=== PATIENT | female | born 1975 | race African-American/Black ===

== ENCOUNTER 2021-01-11 11:52 | Inpatient (IN) | payer MEDICAID ==
[~2021-01-11] VITALS: Ht 162.6 cm; Wt 150.1 kg
[~2021-01-11 11:52] MED LIST: ALBU6.7H9 INH; ATOR20TA PO; CLON0.2T12 PO; FURO-151 MT; HYDR100T26 PO; LEVO50TA8 PO; POTA20TA82 MT; VERA240C3 MT
[2021-01-11] MEDS ORDERED: IBUPROFEN 600MG TABLET PO ONE (12:45)
[2021-01-11 12:57] LABS: BASOPHILS % 0.9 % (0.0-2.0); EOSINOPHILS % 3.9 % (0.0-5.0); HEMATOCRIT. 38.8 % (36.0-48.0); HEMOGLOBIN. 12.3 g/dL (12.0-16.0); LYMPHOCYTES % 15.2 % (20.0-50.0); MEAN CORPUSCULAR HEMOGLOBIN 26.4 pg (28.0-32.0); MEAN CORPUSCULAR VOLUME 83.2 fL (81.0-99.0); MEAN PLATELET VOLUME 10.1 fl (7.4-10.4); MONOCYTES % 5.6 % (2.0-8.0); NEUTROPHILS % 74.4 % (40.0-76.0); PLATELET 248 x1000/uL (130-400); RED BLOOD CELL COUNT 4.66 mill/uL (4.2-5.4); RED CELL DISTRIBUTION WIDTH 16.5 % (11.6-14.6)
[2021-01-11 13:04] LABS: CHLORIDE 102 mEq/L (98-107)
[2021-01-11] MEDS ORDERED: HYDRALAZINE 20MG/ML VIAL IV ONE (15:15)
[2021-01-11] MEDS ORDERED: FUROSEMIDE 20MG/2ML VIAL IVP ONE (16:00)
[2021-01-11] MEDS ORDERED: MORPHINE SULFATE 2 MG/ML CPJ (NOT FOR IM USE) IV NR (20:46)
[2021-01-11] MEDS: CLONIDINE 0.2MG TABLET PO PRN (22:14)
[2021-01-12] VITALS: BP 175/93
[2021-01-12] MEDS ORDERED: *PATIENT'S OWN MEDICATION STORAGE XX SCH (02:15)
[2021-01-12] MEDS ORDERED: NALOXONE HCL 0.4MG/ML VIAL IV PRN (02:15)
[2021-01-12 04:00] VITALS: BP 144/68
[2021-01-12] MEDS: SODIUM CHLORIDE 0.9% 1,000 ML IV SCH ×2 (05:02→17:23)
[2021-01-12 07:41] LABS: BASOPHILS % 0.6 % (0.0-2.0); EOSINOPHILS % 4.7 % (0.0-5.0); HEMATOCRIT. 33.9 % (36.0-48.0); HEMOGLOBIN. 10.9 g/dL (12.0-16.0); LYMPHOCYTES % 27.1 % (20.0-50.0); MEAN CORPUSCULAR HEMOGLOBIN 26.7 pg (28.0-32.0); MONOCYTES % 6.5 % (2.0-8.0); NEUTROPHILS % 61.1 % (40.0-76.0); RED BLOOD CELL COUNT 4.08 mill/uL (4.2-5.4); RED CELL DISTRIBUTION WIDTH 16.6 % (11.6-14.6)
[2021-01-12 08:00] VITALS: BP 166/99
[2021-01-12] MEDS: METOPROLOL TARTRATE 50MG TABLET PO SCH ×2 (08:34→21:00)
[2021-01-12] MEDS: AMLODIPINE 10MG TABLET PO SCH (08:34)
[2021-01-12] MEDS: IPRATROPIUM/ALBUTEROL 0.5-3(2.5)MG/3ML NEB HHN SCH ×4 (09:04→21:18)
[2021-01-12 09:18] LABS: PLATELET 147 x1000/uL (130-400)
[2021-01-12] MEDS ORDERED: INFLUENZA VACCINE 05/PF 0.5 ML SYRINGE IM ONE (10:00)
[2021-01-12 12:00] VITALS: BP 186/103
[2021-01-12] MEDS: THIAMINE HCL 100MG TABLET PO SCH (12:43)
[2021-01-12] MEDS: CLONIDINE 0.2MG TABLET PO PRN ×2 (12:44→17:59)
[2021-01-12] MEDS: HYDROCODONE/ACETAMINOPHEN 10/325MG TABLET PO PRN ×2 (12:44→18:00)
[2021-01-12 16:00] VITALS: BP 187/99
[2021-01-12 20:00] VITALS: BP 141/87
[2021-01-12] MEDS: HYDRALAZINE HCL 50MG TABLET PO SCH (21:01)
[2021-01-13] VITALS: BP 107/68
[2021-01-13] MEDS: IPRATROPIUM/ALBUTEROL 0.5-3(2.5)MG/3ML NEB HHN SCH ×6 (00:24→21:32)
[2021-01-13] MEDS: HYDROCODONE/ACETAMINOPHEN 10/325MG TABLET PO PRN ×3 (00:58→18:08)
[2021-01-13 04:00] VITALS: BP 109/65
[2021-01-13] MEDS: SODIUM CHLORIDE 0.9% 1,000 ML IV SCH ×2 (05:33→18:09)
[2021-01-13 05:47] LABS: BASOPHILS % 0.7 % (0.0-2.0); EOSINOPHILS % 5.3 % (0.0-5.0); HEMATOCRIT. 35.8 % (36.0-48.0); LYMPHOCYTES % 27.4 % (20.0-50.0); MEAN CORPUSCULAR HEMOGLOBIN 26.3 pg (28.0-32.0); MEAN CORPUSCULAR VOLUME 85.3 fL (81.0-99.0); MEAN PLATELET VOLUME 10.4 fl (7.4-10.4); NEUTROPHILS % 59.6 % (40.0-76.0); PLATELET 222 x1000/uL (130-400); RED BLOOD CELL COUNT 4.19 mill/uL (4.2-5.4); RED CELL DISTRIBUTION WIDTH 16.6 % (11.6-14.6)
[2021-01-13 08:00] VITALS: BP 133/76
[2021-01-13] MEDS: THIAMINE HCL 100MG TABLET PO SCH (09:05)
[2021-01-13] MEDS: METOPROLOL TARTRATE 50MG TABLET PO SCH ×2 (09:05→21:11)
[2021-01-13] MEDS: HYDRALAZINE HCL 50MG TABLET PO SCH ×2 (09:06→21:11)
[2021-01-13] MEDS: AMLODIPINE 10MG TABLET PO SCH (09:06)
[2021-01-13 10:18] LABS: CREATINE KINASE 100 IU/L (26-192)
[2021-01-13 12:00] VITALS: BP 124/78
[2021-01-13 16:00] VITALS: BP 143/80
[2021-01-13 16:52] LABS: CLARITY URINE CLOUDY (CLEAR); COLOR URINE YELLOW (YELLOW); KETONES URINE NEGATIVE (NEGATIVE); LEUKOCYTE ESTERASE URINE NEGATIVE (NEGATIVE); NITRITE URINE NEGATIVE (NEGATIVE); OCCULT BLOOD URINE NEGATIVE (NEGATIVE); PROTEIN URINE 2+ (NEGATIVE); SPECIFIC GRAVITY URINE 1.014 (1.005-1.030); UROBILINOGEN URINE 0.2 E.U./dL (0.2-1.0)
[2021-01-13] MEDS ORDERED: MORPHINE SULFATE 2 MG/ML CPJ (NOT FOR IM USE) IV NR (18:59)
[2021-01-13 20:00] VITALS: BP 158/94
[2021-01-13] MEDS ORDERED: FAMOTIDINE 20MG TABLET PO SCH (21:00)
[2021-01-14] VITALS: BP 137/82
[2021-01-14] MEDS: IPRATROPIUM/ALBUTEROL 0.5-3(2.5)MG/3ML NEB HHN SCH ×5 (01:19→16:09)
[2021-01-14 04:02] VITALS: BP 128/73
[2021-01-14 06:49] LABS: BASOPHILS % 0.5 % (0.0-2.0); EOSINOPHILS % 5.7 % (0.0-5.0); HEMATOCRIT. 34.3 % (36.0-48.0); HEMOGLOBIN. 10.9 g/dL (12.0-16.0); LYMPHOCYTES % 18.4 % (20.0-50.0); MEAN CORPUSCULAR HEMOGLOBIN 26.6 pg (28.0-32.0); MEAN CORPUSCULAR VOLUME 83.8 fL (81.0-99.0); MEAN PLATELET VOLUME 10.7 fl (7.4-10.4); MONOCYTES % 4.6 % (2.0-8.0); NEUTROPHILS % 70.8 % (40.0-76.0); PLATELET 241 x1000/uL (130-400); RED BLOOD CELL COUNT 4.09 mill/uL (4.2-5.4); RED CELL DISTRIBUTION WIDTH 16.5 % (11.6-14.6)
[2021-01-14 06:58] LABS: PHOSPHORUS 4.9 mg/dL (2.5-4.9)
[2021-01-14 08:00] VITALS: BP 134/73
[2021-01-14] MEDS: SODIUM CHLORIDE 0.9% 1,000 ML IV SCH (08:20)
[2021-01-14] MEDS: METOPROLOL TARTRATE 50MG TABLET PO SCH (09:28)
[2021-01-14] MEDS: HYDRALAZINE HCL 50MG TABLET PO SCH (09:28)
[2021-01-14] MEDS: AMLODIPINE 10MG TABLET PO SCH (09:28)
[2021-01-14 12:00] VITALS: BP 148/86
[2021-01-14] MEDS ORDERED: LORATADINE 10MG TABLET PO SCH (14:30)
[2021-01-14] MEDS: THIAMINE HCL 100MG TABLET PO SCH (14:48)
[2021-01-14 16:00] VITALS: BP 157/89
[2021-01-14] MEDS ORDERED: HYDR100T26 MT (16:12)
[2021-01-14] MEDS ORDERED: AMLO10TA80 PO (16:12)
[2021-01-14] MEDS ORDERED: CLAR10 PO (16:13)
[2021-01-14] MEDS ORDERED: OMEP20CA14 MT (16:13)
[2021-01-14 16:29] VITALS: BP 157/89
[2021-01-15 13:07] LABS: ANTI-NUCLEAR ANTIBODIES DIRECT Negative (Negative)
== END 2021-01-14 17:55 | disposition home or self-care (01) ==
LOC: ER 11:52 → 6WST 14:55 → ENRESERV 19:58
PROVIDERS: ADMIT Internal Medicine; ATTEND Internal Medicine
DX: K80.20 Calculus of gallbladder without cholecystitis without obstruction (principal); N17.9 Acute kidney failure, unspecified; E44.1 Mild protein-calorie malnutrition; I13.0 Hypertensive heart and chronic kidney disease with heart failure and stage 1 through stage 4 chronic kidney disease, or unspecified chronic kidney disease; I50.9 Heart failure, unspecified; K83.8 Other specified diseases of biliary tract; Z68.43 Body mass index [BMI] 50.0-59.9, adult; J45.909 Unspecified asthma, uncomplicated; F10.10 Alcohol abuse, uncomplicated; Y90.9 Presence of alcohol in blood, level not specified; R74.01 Elevation of levels of liver transaminase levels; E66.9 Obesity, unspecified; N18.9 Chronic kidney disease, unspecified; Z88.2 Allergy status to sulfonamides; Z79.890 Hormone replacement therapy; Z79.899 Other long term (current) drug therapy
CPT/HCPCS: 36415; 71045; 76700; 76770; 78227; 80048; 80053; 80076; 81003; 82550; 83735; 83880; 84100; 84484; 85025; 86038; 86160; 90686; 93005; 93306; 94640; 99285; A6261; A9537; C1893; J0360; J1940; J2270; J7030

== ENCOUNTER 2023-09-06 09:15 | Inpatient (IN) | payer MEDICAID ==
[2023-09-06] VITALS (9 sets, daily range): BP systolic 146–180; BP diastolic 62–96; PULSE 64–104; RESP 13–20; TEMP 97.7–98.4; O2SAT 99
[~2023-09-06] VITALS: Ht 167.6 cm; Wt 140.6 kg
[~2023-09-06 09:15] MED LIST changes: +ALBU6.7H3 INH; -ALBU6.7H9 INH; -ATOR20TA PO; +CITR473S PO; +CLOB15CR4 TOP; -CLON0.2T12 PO; -FURO-151 MT; +FURO40TA5 MT; -HYDR100T26 PO; -POTA20TA82 MT; -VERA240C3 MT
[2023-09-06 09:47] LABS: HEMATOCRIT. 29.6 % (36.0-48.0); HEMOGLOBIN. 9.1 g/dL (12.0-16.0); LYMPHOCYTES % 9.2 % (20.0-50.0); MEAN CORPUSCULAR HGB CONC 30.8 g/dL (31.0-37.0); MEAN CORPUSCULAR VOLUME 81.1 fL (81.0-99.0); MEAN PLATELET VOLUME 9.1 fl (7.4-10.4); MONOCYTES % 7.3 % (2.0-8.0); NEUTROPHILS % 77.5 % (40.0-76.0); PLATELET 262 x1000/uL (130-400); RED BLOOD CELL COUNT 3.64 mill/uL (4.2-5.4); RED CELL DISTRIBUTION WIDTH 21.2 % (11.6-14.6); WHITE BLOOD COUNT 6.5 x1000/uL (4.5-11.0)
[2023-09-06 09:48] LABS: CHLORIDE 114 mEq/L (98-107); SODIUM 137 mEq/L (136-145)
[2023-09-06 09:49] LABS: CALCIUM 8.6 mg/dL (8.7-10.4); CARBON DIOXIDE 13 mEq/L (21-32)
[2023-09-06 09:54] LABS: GLUCOSE 91 mg/dL (70-105); UREA NITROGEN BLOOD 80 mg/dL (9-23)
[2023-09-06 09:55] LABS: TROPONIN I HIGH SENSITIVITY 27 ng/L (3.0-34)
[2023-09-06 09:57] LABS: HCG SCREEN NEGATIVE
[2023-09-06 10:21] LABS: POTASSIUM 7.4 mEq/L (3.5-5.1)
[2023-09-06] MEDS ORDERED: FUROSEMIDE 100MG/10ML VIAL IV STA (10:21)
[2023-09-06 10:22] LABS: CREATININE 7.2 mg/dL (0.6-1.0); ETHANOL BLOOD < 10 mg/dL (<10)
[2023-09-06] MEDS: ALBUTEROL (0.083%) 2.5MG/3ML NEB HHN ONE (10:30)
[2023-09-06] MEDS: SODIUM BICARBONATE 8.4% 1 MEQ/ML 50ML SYR IV ONE (10:38)
[2023-09-06] MEDS: FUROSEMIDE 40MG/4ML VIAL IV NR (10:38)
[2023-09-06] MEDS: CALCIUM CHLORIDE 1GM/10ML SYR IV ONE (10:38)
[2023-09-06] MEDS: DEXTROSE 50% WATER 50ML SYRINGE IV ONE (11:17)
[2023-09-06] MEDS: INSULIN REGULAR (HUMULIN R) 300UNITS/3ML VIAL IV ONE (11:17)
[2023-09-06 11:18] LABS: PROTHROMBIN TIME 10.9 sec (9.6-11.0)
[2023-09-06] MEDS: LIDOCAINE HCL 1% 10 MG/ML 10ML VIAL ONE (11:18)
[2023-09-06] MEDS: LORAZEPAM 2MG/ML INJ IV ONE (11:44)
[2023-09-06 16:10] LABS: HEPATITIS B SURFACE ANTIGEN NEGATIVE (Negative)
[2023-09-06 16:31] LABS: HEPATITIS A AB IGM NEGATIVE (Negative)
[2023-09-06 16:32] LABS: HEPATITIS B CORE AB IGM NEGATIVE (Negative); HEPATITIS C AB NON REACTIVE (Neg) (Negative)
[2023-09-07] VITALS (11 sets, daily range): BP systolic 97–150; BP diastolic 54–84; PULSE 76–99; RESP 16–20; TEMP 97.3–99
[2023-09-07 06:09] LABS: HEMATOCRIT 25.6 % (36.0-48.0); HEMOGLOBIN 8.4 g/dL (12.0-16.0); MEAN CORPUSCULAR HEMOGLOBIN 25.4 pg (28.0-32.0); MEAN CORPUSCULAR HGB CONC 32.9 g/dL (31.0-37.0); MEAN CORPUSCULAR VOLUME 77.3 fL (81.0-99.0); PLATELET 220 x1000/uL (130-400); RED BLOOD CELL COUNT 3.31 mill/uL (4.2-5.4); RED CELL DISTRIBUTION WIDTH 20.7 % (11.6-14.6); WHITE BLOOD COUNT 6.1 x1000/uL (4.5-11.0)
[2023-09-07 06:16] LABS: CALCIUM 8.4 mg/dL (8.7-10.4)
[2023-09-07 06:23] LABS: CREATININE 6.9 mg/dL (0.6-1.0); PHOSPHORUS 5.5 mg/dL (2.5-4.9)
[2023-09-07] MEDS: DEXTROSE 50% WATER 50ML SYRINGE IV NR (07:47)
[2023-09-07] MEDS: INSULIN REGULAR (HUMULIN R) 300UNITS/3ML VIAL IV NR (07:47)
[2023-09-07] MEDS: SODIUM POLYSTYRENE SULFONATE 15 G/60 ML BOT PO NR (08:00)
[2023-09-07] MEDS: AMLODIPINE 10MG TABLET PO SCH (09:00)
[2023-09-07] MEDS: ACETAMINOPHEN 325MG TABLET PO PRN (10:39)
[2023-09-07] MEDS: SEVELAMER CARBONATE 800 MG TABLET PO SCH (10:39)
[2023-09-07 11:04] LABS: CREATINE KINASE 497 IU/L (34-145)
[2023-09-07 13:08] LABS: POTASSIUM 4.8 mEq/L (3.5-5.1)
[2023-09-07 13:09] LABS: CALCIUM 8.4 mg/dL (8.7-10.4)
[2023-09-07 13:15] LABS: CREATININE 5.1 mg/dL (0.6-1.0)
[2023-09-07] MEDS: CALCIUM GLUCONATE 1GM PREMIX 100 ML IV NR (14:10)
[2023-09-08] VITALS: BP 107/57; PULSE 79; RESP 18; TEMP 97.5
[2023-09-08 04:00] VITALS: BP 101/60; PULSE 87; RESP 20; TEMP 97.8
[2023-09-08 05:55] LABS: HEMATOCRIT. 25.7 % (36.0-48.0); HEMOGLOBIN. 8.2 g/dL (12.0-16.0); MEAN CORPUSCULAR HEMOGLOBIN 24.8 pg (28.0-32.0); MEAN CORPUSCULAR HGB CONC 31.8 g/dL (31.0-37.0); MEAN CORPUSCULAR VOLUME 77.9 fL (81.0-99.0); MEAN PLATELET VOLUME 9.5 fl (7.4-10.4); PLATELET 203 x1000/uL (130-400); RED CELL DISTRIBUTION WIDTH 20.6 % (11.6-14.6); WHITE BLOOD COUNT 6.9 x1000/uL (4.5-11.0)
[2023-09-08 06:03] LABS: POTASSIUM 4.9 mEq/L (3.5-5.1)
[2023-09-08 06:04] LABS: CALCIUM 7.7 mg/dL (8.7-10.4)
[2023-09-08 06:30] LABS: CREATININE 7.6 mg/dL (0.6-1.0)
[2023-09-08 07:08] LABS: DIFFERENTIAL COMMENT 1
[2023-09-08 08:00] VITALS: BP 116/67; PULSE 72; RESP 20; TEMP 98.3
[2023-09-08 09:06] LABS: ANTI-NUCLEAR ANTIBODIES DIRECT Negative (Negative); COMPLEMENT C3 136 mg/dL (82-167); COMPLEMENT C4 57 mg/dL (12-38)
[2023-09-08 12:00] VITALS: BP 105/63; PULSE 73; RESP 22; TEMP 98
[2023-09-08 13:45] LABS: CLARITY URINE TURBID (CLEAR); COLOR URINE YELLOW (YELLOW); GLUCOSE URINE NEGATIVE (NEGATIVE); KETONES URINE TRACE (NEGATIVE); LEUKOCYTE ESTERASE URINE 3+ (NEGATIVE); NITRITE URINE NEGATIVE (NEGATIVE); OCCULT BLOOD URINE 1+ (NEGATIVE); PROTEIN URINE 2+ (NEGATIVE); SPECIFIC GRAVITY URINE 1.016 (1.005-1.030); UROBILINOGEN URINE 0.2 E.U./dL (0.2-1.0)
[2023-09-08 14:27] LABS: BACTERIA URINE 3+; SQUAMOUS EPITHELIAL CELL URINE 2+ /lpf (RARE/1+); WBC URINE TNTC /hpf (0-2)
[2023-09-08 16:00] VITALS: BP 118/73; PULSE 74; RESP 20; TEMP 98.2
[2023-09-08 16:43] LABS: ANISOCYTOSIS 1+; HYPOCHROMASIA 1+; MICROCYTOSIS 1+; NUCLEATED RED BLOOD CELLS 1 /100 WBC; PLATELET ESTIMATE NORMAL
[2023-09-08 20:00] VITALS: BP 120/75; PULSE 77; RESP 18; TEMP 99.1
[2023-09-08] MEDS: EPOETIN ALFA 4000UNITS/ML VIAL SUBCUT NR (21:47)
[2023-09-09] VITALS (19 sets, daily range): BP systolic 102–174; BP diastolic 48–105; PULSE 75–99; RESP 14–20; TEMP 96.7–98.9
[2023-09-09 06:33] LABS: CALCIUM 7.6 mg/dL (8.7-10.4)
[2023-09-09] MEDS ORDERED: LIDOCAINE HCL/EPINEPHRINE 1%-EPI 1:100,000 20 ML VIAL ONE (07:27)
[2023-09-09] MEDS ORDERED: LIDOCAINE HCL 1% 10 MG/ML 10ML VIAL ONE (07:27)
[2023-09-09 07:35] LABS: CREATININE 8.5 mg/dL (0.6-1.0)
[2023-09-09] MEDS: CEFAZOLIN 1000MG PREMIX 50 ML IV NR (07:45)
[2023-09-09] MEDS ORDERED: FENTANYL CITRATE/PF 50MCG/ML 2ML VIAL ONE (07:54)
[2023-09-09] MEDS: FENTANYL CITRATE/PF 50MCG/ML 2ML VIAL IV ONE (07:55)
[2023-09-09] MEDS ORDERED: LEVO250T74 MT (14:28)
[2023-09-09] MEDS: CEFTRIAXONE 1GM/50ML 50 ML IV SCH (18:03)
[2023-09-10] VITALS: BP 127/74; PULSE 82; RESP 20; TEMP 98.8
[2023-09-10 04:00] VITALS: BP 111/69; PULSE 79; RESP 16; TEMP 99.3
[2023-09-10 08:00] VITALS: BP 115/67; PULSE 72; RESP 18; TEMP 98.5
[2023-09-10 11:43] VITALS: BP 115/67; PULSE 72; TEMP 98.4; O2SAT 98
[2023-09-13] MEDS ORDERED: CARV3.1242 MT (10:19)
[2023-09-14] MEDS ORDERED: LEVO50TA8 PO (12:34)
== END 2023-09-10 12:30 | disposition home or self-care (01) | DRG 52 ==
LOC: ER 09:15 → EDBEDREQ 11:34 → EDBEDREQTM 11:34 → 5WST 18:04 → 8WST 21:35
PROVIDERS: ADMIT Internal Medicine; ATTEND Internal Medicine
PROC: 5A1D70Z Performance of Urinary Filtration, Intermittent, Less than 6 Hours Per Day (ICD-10-PCS; principal; 2023-09-06)
PROC: 02HV33Z Insertion of Infusion Device into Superior Vena Cava, Percutaneous Approach (ICD-10-PCS; 2023-09-06)
PROC: B548ZZA Ultrasonography of Superior Vena Cava, Guidance (ICD-10-PCS; 2023-09-06)
PROC: 5A1D70Z Performance of Urinary Filtration, Intermittent, Less than 6 Hours Per Day (ICD-10-PCS; 2023-09-07)
PROC: 5A1D70Z Performance of Urinary Filtration, Intermittent, Less than 6 Hours Per Day (ICD-10-PCS; 2023-09-09)
PROC: 0JH63XZ Insertion of Tunneled Vascular Access Device into Chest Subcutaneous Tissue and Fascia, Percutaneous Approach (ICD-10-PCS; 2023-09-09)
PROC: 02HV33Z Insertion of Infusion Device into Superior Vena Cava, Percutaneous Approach (ICD-10-PCS; 2023-09-09)
PROC: B548ZZA Ultrasonography of Superior Vena Cava, Guidance (ICD-10-PCS; 2023-09-09)
PROC: B5181ZA Fluoroscopy of Superior Vena Cava using Low Osmolar Contrast, Guidance (ICD-10-PCS; 2023-09-09)
DX: G93.41 Metabolic encephalopathy (principal); I13.2 Hypertensive heart and chronic kidney disease with heart failure and with stage 5 chronic kidney disease, or end stage renal disease; N17.9 Acute kidney failure, unspecified; E87.20 Acidosis, unspecified; E11.22 Type 2 diabetes mellitus with diabetic chronic kidney disease; D64.9 Anemia, unspecified; E87.5 Hyperkalemia; Z68.43 Body mass index [BMI] 50.0-59.9, adult; N18.6 End stage renal disease; I50.9 Heart failure, unspecified; E66.01 Morbid (severe) obesity due to excess calories; J45.909 Unspecified asthma, uncomplicated; Z99.2 Dependence on renal dialysis; F41.9 Anxiety disorder, unspecified; N39.0 Urinary tract infection, site not specified; Z88.2 Allergy status to sulfonamides
CPT/HCPCS: 36415; 36556; 36558; 36589; 71045; 76770; 76937; 77001; 80048; 80320; 81003; 82550; 82962; 84100; 84484; 84703; 85025; 85027; 86038; 86160; 86705; 86706; 86709; 87077; 87186; 87340; 90935; 94640; 99152; 99153; 99291; C1750; C1752; C1769; C1892; C1893; J0610; J0690; J0696; J0885; J1642; J1815; J1940; J2060; J3010; J3490; G0480; G0500

== ENCOUNTER 2023-10-02 11:55 | Emergency (ER) | payer MEDICAID ==
[~2023-10-02] VITALS: Ht 160 cm; Wt 138.0 kg
[~2023-10-02 11:55] MED LIST changes: +CARV3.1242 MT
[2023-10-02 12:20] VITALS: O2SAT 100
[2023-10-02 13:13] LABS: CHLORIDE 104 mEq/L (98-107); POTASSIUM 5.6 mEq/L (3.5-5.1); SODIUM 136 mEq/L (136-145)
[2023-10-02 13:14] LABS: CARBON DIOXIDE 25 mEq/L (21-32)
[2023-10-02 13:15] LABS: CALCIUM 9.2 mg/dL (8.7-10.4)
[2023-10-02 13:17] LABS: INR 0.9; PROTHROMBIN TIME 10.6 sec (9.6-11.0)
[2023-10-02 13:19] LABS: GLUCOSE 91 mg/dL (70-105); UREA NITROGEN BLOOD 27 mg/dL (9-23)
[2023-10-02 13:21] LABS: ALANINE AMINOTRANSFERASE 20 IU/L (10-49); ALBUMIN 4.2 g/dL (3.2-4.8); ASPARTATE AMINOTRANSFERASE 29 IU/L (<34)
[2023-10-02 13:22] LABS: BILIRUBIN TOTAL 0.3 mg/dL (0.1-1.0); PROTEIN TOTAL 6.6 g/dL (6.0-8.3)
[2023-10-02] MEDS ORDERED: LIDOCAINE HCL 1% 10 MG/ML 10ML VIAL ONE (13:38)
[2023-10-02 13:42] LABS: CREATININE 6.1 mg/dL (0.6-1.0)
[2023-10-02] MEDS: CEFAZOLIN 1000MG PREMIX 50 ML IV ONE (13:50)
[2023-10-02 13:55] VITALS: BP 155/117; PULSE 74; RESP 16; O2SAT 98
[2023-10-02 14:05] VITALS: BP 175/85; PULSE 76; RESP 16; O2SAT 100
[2023-10-02 14:07] VITALS: BP 155/117; RESP 16
[2023-10-02 14:15] VITALS: BP 178/89; PULSE 69; RESP 16; O2SAT 98
[2023-10-02 15:05] LABS: BASOPHILS % 0.9 % (0.0-2.0); EOSINOPHILS % 7.3 % (0.0-5.0); HEMATOCRIT. 25.9 % (36.0-48.0); HEMOGLOBIN. 7.8 g/dL (12.0-16.0); LYMPHOCYTES % 14.2 % (20.0-50.0); MEAN CORPUSCULAR HEMOGLOBIN 25.8 pg (28.0-32.0); MEAN CORPUSCULAR HGB CONC 29.9 g/dL (31.0-37.0); MEAN CORPUSCULAR VOLUME 86.3 fL (81.0-99.0); MEAN PLATELET VOLUME 9.4 fl (7.4-10.4); MONOCYTES % 10.8 % (2.0-8.0); NEUTROPHILS % 66.8 % (40.0-76.0); PLATELET 183 x1000/uL (130-400); RED CELL DISTRIBUTION WIDTH 17.2 % (11.6-14.6); WHITE BLOOD COUNT 5.5 x1000/uL (4.5-11.0)
[2023-10-02 16:12] VITALS: BP 178/98; PULSE 70; RESP 17; TEMP 36.78072; O2SAT 100
== END 2023-10-02 16:35 | disposition home or self-care (01) ==
LOC: ER 11:55
DX: T83.098A Other mechanical complication of other urinary catheter, initial encounter (principal); F41.9 Anxiety disorder, unspecified; J45.909 Unspecified asthma, uncomplicated; I12.0 Hypertensive chronic kidney disease with stage 5 chronic kidney disease or end stage renal disease; N18.6 End stage renal disease; Z99.2 Dependence on renal dialysis; Z88.2 Allergy status to sulfonamides
CPT/HCPCS: 36556; 80053; 85025; 85610; 36415; 77001; 99285; 96365; J0690; J1642; J3490; C1750; C1769 ×2; 99284